=== PATIENT | female | born 1970 | race Caucasian/White ===

== ENCOUNTER 2016-12-30 20:10 | Observation (INO) | payer OTHER ==
[2016-12-30 20:00] VITALS: BP 141/85; PULSE 77; RESP 20; TEMP 97.7; O2SAT 96
[~2016-12-30 20:10] MED LIST: BUTA1CAP PO; NITR100C4 PO; PERC5TAB12 PO
[2016-12-30] MEDS ORDERED: NALOXONE HCL 0.4 MG/ML AMP IV PRN (20:30)
[2016-12-30] MEDS ORDERED: SODIUM CHLORIDE 0.9% FLUSH 10 ML FLUSH IV FLUSH PRN (20:30)
[2016-12-30] MEDS: ONDANSETRON HCL 4 MG/2 ML VIAL IVP PRN (21:19)
[2016-12-30] MEDS: SODIUM CHLOR 0.9% 1000 ML INJ 1,000 ML IV SCH (21:22)
[2016-12-30] MEDS: CIPROFLOXACIN 400 MG PREMIX 200 ML IV SCH (21:23)
[2016-12-30] MEDS: SODIUM CHLORIDE 0.9% FLUSH 10 ML FLUSH IV FLUSH SCH (21:23)
--- NOTE | 2016-12-30 22:59 | HHI.HP ---
[facility] Service [facility] Primary Care Physician Rasheed Covington Admission Diagnosis Diagnoses: Chief Complaint: HUI, Left flank pain and nausea Travel History International Travel<30 Days: No Contact w/Intl Traveler <30 Da: No Traveled to Known Affected Are: No History of Present Illness Written by NATHALY Seymour acting as scribe for [Jamilah] on 12/30/16 at 22: 50. 46 y/o with a history of DM ( diet controlled), HTN (not currently on medications) recently diagnosed and never started on medication, and kidney stones presented to the ED with complaints of HUI, intermittent for the last 1 week, and nausea and left flank pain for the last 2 days. She has was found to have a left kidney stone in October that was being watched by her urologist for it to pass. Denies any fevers or chills. She complains of pain and pressure after urination, denies any burning sensation. Denies any chest pain, sob, or vomiting. Urologist is Dr. Guzman PCP is Dr. Covington Review of Systems Constitutional: DENIES: Fever, Chills Respiratory: DENIES: Cough, Shortness of breath Cardiovascular: DENIES: Chest pain, Lower Extremity Edema Gastrointestinal: COMPLAINS OF: Abdominal pain, Nausea, DENIES: Diarrhea, Vomiting Genitourinary: COMPLAINS OF: Dysuria, DENIES: Hematuria Musculoskeletal: COMPLAINS OF: Back pain (left flank), DENIES: Neck pain Integumentary: DENIES: Rash Hematologic/lymphatic: DENIES: Lymphadenopathy Immunologic/allergic: DENIES: Urticaria Neurologic: COMPLAINS OF: Headache Past Family Social History Past Medical History HTN- not on medications DM- diet controlled Past Surgical History Hysterectomy Tubal Lithotripsy Hernia repair Cholecystectomy Reported Medications Reported Meds & Active Scripts Active Nitrofurantoin Monohydrate Macrocrystals (Nitrofurantoin Monoh/Nitrofur Macro) 100 Mg Cap 100 Mg PO BID Allergies: Coded Allergies: Morphine (Verified Allergy, Severe, HIVES, 12/30/16) Seroquel (Verified Allergy, Severe, STOMACH PAIN, 12/30/16) Toradol (Verified Allergy, Severe, HIVES, 12/30/16) Active Ordered Medications Current Medications Medications (Trade) Dose Ordered Sig/Jayy Route Start Time Stop Time Status Last Admin (NS 1000 ml Inj) 1,000 ml @ 100 mls/hr Q10H IV 12/30/16 20:26 12/30/16 21:22 (NS Flush) 2 ml UNSCH PRN IV FLUSH 12/30/16 20:30 (NS Flush) 2 ml BID IV FLUSH 12/30/16 21:00 12/30/16 21:23 (Zofran Inj) 4 mg Q6H PRN IVP 12/30/16 20:30 12/30/16 21:19 Naloxone HCl 0.4 mg 0.4 mg UNSCH PRN IV 12/30/16 20:30 (Cipro 400 Mg Premix) 200 ml @ 200 mls/hr Q12HR IV 12/30/16 21:00 12/30/16 21:23 Family History Mom: RA Dad: Alzheimer's Social History Tobacco use: Quit 6 years ago Alcohol use: Denies Illcit drug use: Denies Physical Exam Vital Signs Vital Signs Date Time Temp Pulse Resp B/P Pulse Ox O2 Delivery O2 Flow Rate FiO2 12/30/16 20:00 97.7 77 20 141/85 96 Physical Exam GENERAL: This is a well-nourished, well-developed patient,complaining of pain. SKIN: No rashes, ecchymoses or lesions. Cool and dry. HEAD: Atraumatic. Normocephalic. EYES: Pupils equal round and reactive. ENT: Nose without bleeding, purulent drainage or septal hematoma. NECK: Trachea midline. No JVD or lymphadenopathy. CARDIOVASCULAR: Regular rate and rhythm without murmurs, gallops, or rubs. RESPIRATORY: Clear to auscultation. Breath sounds equal bilaterally. No wheezes , rales, or rhonchi. GASTROINTESTINAL: Abdomen soft, non-tender, nondistended. Left flank pain. MUSCULOSKELETAL: Extremities without clubbing, cyanosis, or edema. No joint tenderness, effusion, or edema noted. No calf tenderness. NEUROLOGICAL: Awake and alert. Motor and sensory grossly within normal limits. Normal speech. Imaging Assessment and Plan Problem List: (1) Pyelonephritis ICD Code: N12 Status: Acute (2) Cephalalgia ICD Code: R51 Status: Acute (3) HTN (hypertension) ICD Code: I10 Status: Acute Assessment and Plan 46 y/o with a history of DM ( diet controlled), HTN (not currently on medications) recently diagnosed and never started on medication, and kidney stones presented to the ED with complaints of HUI, intermittent for the last 1 week, and nausea and left flank pain for the last 2 days. She has was found to have a left kidney stone in October that was being watched by her urologist for it to pass. Pyelonephritis, Left flank pain, no fevers or leukocytosis UA Abnormal, CT abdomen/pelvis reviewed unchanged from prior study -Urine culture pending -Cipro IV Q12hrs -Pain medication with IV Dilaudid -IVF for hydration Cephalalgia, questionable punctate hemorrhage, patient with intermittent headaches for 1 week, suspected BP related Head CT reviewed shows questionable punctate hemorrhage, may be artifact, recommended repeat in 12 hours -Repeat Head CT in AM -Neuro checks HTN, diagnosed 1 month ago, never started on medications, suspected increased due to pain -Vasotec IV PRN -Patient may need to be started on oral when pain is controlled -Monitor vitals DVT prophylaxis: SCDs Discussed Condition With Patient, RN and ED physician Physician Certification 2 Midnight Certification Type: Continued Stay Order for Inpatient Services The services are ordered in accordance with Medicare regulations or non- Medicare payer requirements, as applicable. In the case of services not specified as inpatient-only, they are appropriately provided as inpatient services in accordance with the 2-midnight benchmark. Estimated LOS (days): 0 days is the estimated time the patient will need to remain in the hospital, assuming treatment plan goals are met and no additional complications. Post-Hospital Plan: Home Notes: Patient is Observation Problem Qualifiers (1) Cephalalgia: Joslyn Smith Dec 30, 2016 22:59
[2016-12-30] MEDS ORDERED: ACETAMINOPHEN/HYDROcodone 325 MG/5 MG TAB PO PRN (23:15)
[2016-12-30] MEDS ORDERED: ENALAPRILAT 1.25 MG/ML VIAL IV PUSH PRN (23:30)
[2016-12-31] VITALS (7 sets, daily range): BP systolic 109–141; BP diastolic 65–85; PULSE 60–78; RESP 16–20; TEMP 97.2–98.8; O2SAT 95–98
[2016-12-31] MEDS: SODIUM CHLOR 0.9% 1000 ML INJ 1,000 ML IV SCH (05:40)
[2016-12-31 06:05] LABS: AUTOMATED NEUTROPHIL # 4.1 TH/MM3 (1.8-7.7); BASOPHIL % 0.5 % (0.0-2.0); EOSINOPHIL # 0.1 TH/MM3 (0-0.4); EOSINOPHIL % 1.7 % (0.0-4.0); HEMATOCRIT 39.2 % (35.0-46.0); HEMO FLAGS DIFF FINAL; LYMPH % 23.5 % (9.0-44.0); LYMPHOCYTE # 1.5 TH/MM3 (1.0-4.8); MEAN CORPUSCULAR HEMOGLOBIN 29.3 PG (27.0-34.0); MONO % 10.4 % (0.0-8.0); NEUT % 63.9 % (16.0-70.0); PLATELET COUNT 155 TH/MM3 (150-450); RED CELL DISTRIBUTION WIDTH 13.7 % (11.6-17.2); WHITE BLOOD COUNT 6.4 TH/MM3 (4.0-11.0)
[2016-12-31 06:24] LABS: BICARBONATE 25.7 MEQ/L (21.0-32.0); POTASSIUM 3.6 MEQ/L (3.5-5.1)
[2016-12-31] MEDS: ONDANSETRON HCL 4 MG/2 ML VIAL IVP PRN ×2 (07:30→14:43)
[2016-12-31] MEDS: HYDROmorphone HCL PF 1 MG/ML VIAL IV PUSH PRN ×3 (07:31→16:07)
--- NOTE | 2016-12-31 09:22 | RADRPT ---
EXAM DATE/TIME: 12/31/2016 07:57 [facility] COMPARISON: CT BRAIN W/O CONTRAST, December 30, 2016, 16:41. INDICATIONS : Follow up for punctate hemorrhage. RADIATION DOSE: 56.35 CTDIvol (mGy) MEDICAL HISTORY : Cardiovascular disease. Hypertension. Diabetes mellitus type 2. SURGICAL HISTORY : None. ENCOUNTER: Subsequent ACUITY: 1 day PAIN SCALE: 2/10 LOCATION: cranial TECHNIQUE: Multiple contiguous axial images were obtained of the head. Using automated exposure control and adj ustment of the mA and/or kV according to patient size, radiation dose was kept as low as reasonably a chievable to obtain optimal diagnostic quality images. DICOM format image data is available electro nically for review and comparison. FINDINGS: Today's exam is compared to the prior study of 12/30/2016. A small punctate hemorrhage is noted high al jaron the lesser vertex. On today's examination the small punctate hemorrhages stable. It is partially hidden by the dural calcifications. However, there is now a small amount of surrounding edema which i s a new finding compared to the prior study. Otherwise, the rest of examination remains stable. The v entricles are normal in size and midline in position. There is no mass effect or midline shift. No ne w areas of hemorrhage are demonstrated. CONCLUSION: 1. Stable tiny punctate hemorrhage high along the left cerebral vertex now surrounded by a small amou nt of edema. 2. Otherwise, the rest of the brain remains stable and unremarkable. No other new findings are demons trated. Gato Talley MD on December 31, 2016 at 9:15 Board Certified Radiologist. This report was verified electronically.
[2016-12-31] MEDS: SODIUM CHLORIDE 0.9% FLUSH 10 ML FLUSH IV FLUSH SCH (10:16)
[2016-12-31] MEDS: CIPROFLOXACIN 400 MG PREMIX 200 ML IV SCH (10:17)
--- NOTE | 2016-12-31 10:50 | HHI.PR ---
Subjective Remarks Follow-up cephalgia/tiny punctate hemorrhage 12/31/16-patient seen and examined, reports some improvement of headaches. Follow-up head CT stable with tiny punctate hemorrhage. Patient was up and ambulating in the hallway with PT and denies any dizziness Objective Vitals Vital Signs Date Time Temp Pulse Resp B/P Pulse Ox O2 Delivery O2 Flow Rate FiO2 12/31/16 08:00 97.2 60 17 133/67 95 12/31/16 04:00 97.5 64 20 109/65 98 12/31/16 00:41 78 12/31/16 00:00 97.6 63 20 124/67 95 12/30/16 20:00 97.7 77 20 141/85 96 I/O 12/30/16 12/30/16 12/30/16 12/31/16 12/31/16 12/31/16 07:00 15:00 23:00 07:00 15:00 23:00 Intake Total 240 ml 1000 ml Balance 240 ml 1000 ml Intake Oral 240 ml IV Total 1000 ml # Voids 1 1 Result Diagram: 12/31/16 0550 12/31/16 0550 Imaging Last Impressions Head CT 12/31/16 0600 Signed Impressions: Service Date/Time: December 07:57 - CONCLUSION: 1. Stable tiny punctate hemorrhage high along the left cerebral vertex now surrounded by a small amount of edema. 2. Otherwise, the rest of the brain remains stable and unremarkable. No other new findings are demonstrated. Gato Talley MD Objective Remarks GENERAL: NAD SKIN: Warm and dry. HEAD: Normocephalic. EYES: No scleral icterus. No injection or drainage. NECK: Supple, trachea midline. No JVD or lymphadenopathy. CARDIOVASCULAR: Regular rate and rhythm without murmurs, gallops, or rubs. RESPIRATORY: Breath sounds equal bilaterally. No accessory muscle use. GASTROINTESTINAL: Abdomen soft, non-tender, nondistended. MUSCULOSKELETAL: No cyanosis, or edema. BACK: Nontender without obvious deformity. No CVA tenderness. A/P Problem List: (1) Pyelonephritis ICD Code: N12 Status: Acute (2) Cephalalgia ICD Code: R51 Status: Acute (3) HTN (hypertension) ICD Code: I10 Status: Acute (4) Punctate hemorrhage of left frontal lobe ICD Code: I61.1 Status: Acute Assessment and Plan 46-year-old female with Pyelonephritis, Left flank pain, no fevers or leukocytosis UA Abnormal, CT abdomen/pelvis reviewed unchanged from prior study -Urine culture pending -Cipro IV Q12hrs however will switch to by mouth Macrobid -Pain medication with IV Dilaudid -IVF for hydration Cephalalgia Tiny punctate punctate hemorrhage -Repeat Head CT this a.m. stable with again tiny punctate Hemorrhage in the left cerebral vertex -Neuro checks HTN, diagnosed 1 month ago, never started on medications, suspected increased due to pain -Vasotec IV PRN -Currently normotensive, patient will follow outpatient with PCP DVT prophylaxis: SCDs Discharge Planning Discharge patient to home Condition on discharge: Improved Regular Diet as tolerated [place] activity Rx written:none Follow-up with primary care physician in one week Problem Qualifiers (1) Cephalalgia: Ziggy Sumner MD Dec 31, 2016 10:50
[2016-12-31] MEDS ORDERED: diphenhydrAMINE HCL 50 MG/ML VIAL IM ONE (11:30)
[2016-12-31] MEDS ORDERED: ACETAMINOPHEN 325 MG TAB PO ONE (16:00)
== END 2016-12-31 18:15 | disposition home or self-care (01) ==
LOC: NEDDLT 20:10 → N05B 20:20 → OBSVTOIN 20:20 → INTOOBSV 20:20
PROVIDERS: ADMIT Hospitalist; ATTEND Hospitalist
DX: R51 Headache (principal); I61.1 Nontraumatic intracerebral hemorrhage in hemisphere, cortical; N12 Tubulo-interstitial nephritis, not specified as acute or chronic; R10.9 Unspecified abdominal pain; R11.0 Nausea; E11.9 Type 2 diabetes mellitus without complications; I10 Essential (primary) hypertension; Z87.891 Personal history of nicotine dependence
CPT/HCPCS: 70450; 74176; 76937; 80048; 80053; 81001; 84702; 85025; 87077; 87086; 87186; 96361; 96374; 96375; 97161; 99285; G0378; G8987; G8988; J0744; J1170; J1200; J2060; J2405; J2543; J2765; J7030; 99281

== ENCOUNTER → 2017-02-17 | Day surgery (SDC) | payer OTHER ==
--- NOTE | 2017-02-11 08:35 | MH ---
cc: JACQUES RAVI MD DATE OF ADMISSION: 02/17/2017 : 1970 Scheduled for admission on February 17 for midurethral sling and anterior posterior repair. HISTORY OF PRESENT ILLNESS The patient is a 46-year-old female, 5, para 4 status post hysterectomy for fibroids, has issues with pelvic organ prolapse and stress incontinence. She typically has incontinence with lifting and any increased activity. She notes this has gotten worse after the of her 11 pound child. Has a 30 pack-year history of smoking but quit smoking about 5 years ago. Has had a urodynamic study that shows low sensory volumes, low total capacity at 200 ccs and did demonstrate leaking at 93 ccs. There is no sign of detrusor instability or elevated postvoid residual. PAST MEDICAL HISTORY Hypertension. PAST SURGICAL HISTORY 1. SOPHY-BSO. 2. Hernia repair. 3. Tubal ligation. 4. Total abdominal hysterectomy. MEDICATIONS 1. Lisinopril. 2. Percocet for back pain. FAMILY HISTORY Noncontributory. GYNECOLOGIC HISTORY No STDs or abnormal Pap smears. OBSTETRICAL HISTORY Four vaginal deliveries, largest baby 11 pounds. SOCIAL HISTORY Prior smoking, quit 5 years ago. No alcohol or drugs. ALLERGIES TORADOL AND MORPHINE. TORADOL CAUSES RASH AND HIVES. REVIEW OF SYSTEMS As above. No chest pain, orthopnea, PND. No nausea, vomiting, fever or chills. No vaginal bleeding or discharge. Pelvic pressure and stress urinary incontinence as noted above. PHYSICAL EXAMINATION VITAL SIGNS: On exam she is afebrile. Vital signs are stable. Blood pressure is 120/70, height is 5 feet, 2 inches, weight 173, BMI is 32. GENERAL: Patient is alert and oriented, no acute distress. No sign of cognitive dysfunction or depression. HEENT: Within normal limits. NECK: Supple. No JVD. CHEST: Clear. HEART: Regular rate and rhythm. ABDOMEN: Soft, nontender. No hepatosplenomegaly. No CVA tenderness. PELVIC: POP-Q score: Aa is 0, Ap is 0. Point C is -1. Genital hiatus is 8. Perineal body is 1. Levator muscles were 3/5. Sacral nerve reflexes are normal. Hypermobility of urethra noted with 30 degrees deviation from horizontal. Further exam under anesthesia. EXTREMITIES: Normal skin without rashes. NEURO: Nonfocal. No DVT signs. ASSESSMENT Patient with pelvic organ prolapse and stress incontinence. The patient has stage II pelvic organ prolapse anterior posterior and apical compartments. Will proceed with repair and suspension. We discussed risks, benefits, alternatives of planned procedure including damage to surrounding organs, bleeding, infection, failure of repair, pain with intercourse. The patient has issues with stress incontinence documented on urodynamic testing. We discussed risks, benefits, alternatives to planned procedure of midurethral sling including damage to surrounding organs, bleeding, infection, failure to achieve continence, issues with pelvic pain, discomfort, dyspareunia, mesh erosion, mesh complication are discussed. The patient has made an informed choice to proceed. At this point we anticipate outpatient procedure. Will use DVT prophylaxis with sequential compression device, antibiotic coverage Ancef 2 grams and postoperatively we will avoid Toradol with her rash and hive history but we can use tramadol postoperatively. MD KUSHAL Barnett/KRUPA /10:14 AM /8:32 AM
[~2017-02-17] VITALS: Ht 157.5 cm; Wt 80.9 kg
[~2017-02-17] MED LIST changes: +*HYDROmorphone PF 1 MG VIAL PERIprocedural Use ONLY ONE; +ACETAMINOPHEN 1000 MG/100 ML 100 ML IV ONE; +APREPITANT 40 MG CAP ONE; -BUTA1CAP PO; +CEPH-460 PO; +CHLORHEXIDINE GLUCONATE 2 % 1 PACK (2 CLOTHS) TOPICAL PRN; +DO NOT ADM ANY ANTICOAGULANT DRUGS PRN; +FAMOTIDINE 20 MG/2 ML VIAL ONE; +HYDR-3580 PO; +INSULIN HUMAN REGULAR 1,000 UNITS/10 ML VIAL SQ PRN; +LACTATED RINGER'S 1000 ML INJ 1,000 ML IV ONE; +LACTATED RINGER'S 1000 ML IV PRN; +LIDOCAINE 0.5%/EPINEPHrine 1:200,000 SOLN 50 ML VIAL ONE; +MEPERIDINE HCL 50 MG/ML VIAL IM PRN; +METHYLENE BLUE 10 MG/ML VIAL OTHER ONE; +METOPROLOL TARTRATE 25 MG TAB PO PRN; +MIDAZOLAM HCL 2 MG/2 ML VIAL ONE; +NAPR500 PO; +ONDANSETRON HCL 4 MG/2 ML VIAL IV PUSH ONE; +ONDANSETRON HCL 4 MG/2 ML VIAL IV PUSH PRN; -PERC5TAB12 PO; +POVIDONE IODINE 5% (ANTISEPSIS KIT) 4 APPLICATIONS EACH NARE PRN; +PROPOFOL 200 MG/20 ML AMP IV ONE; +SODIUM CHLORID 0.9% 500 ML IV PRN; +ZOFR4TAB3 SL; +ZOFR8TAB PO; +ceFAZolin 2 GM PREMIX 50 ML IV SCH; +fentaNYL CITRATE 250 MCG/5 ML AMP ONE; +traMADol HCL 50 MG TAB PO PRN
--- NOTE | 2017-02-17 12:00 | MP ---
cc: JACQUES RAVI MD DATE OF SURGERY 02/17/2017 PREOPERATIVE DIAGNOSES 1. Stress urinary continence. 2. Anterior cystocele grade 2. 3. Rectocele grade 2. 4. Loss of perineal body. POSTOPERATIVE DIAGNOSES 1. Stress urinary continence. 2. Anterior cystocele grade 2. 3. Rectocele grade 2. 4. Loss of perineal body. 5. Absence of external anal sphincter from 10 o'clock to 2 o'clock. PROCEDURE 1. Anterior and posterior repair. 2. Extraperitoneal vaginal apical suspension. 3. Transobturator midurethral sling, polypropylene Desara manufactured by [employer]. 4. External sphincteroplasty end-to-end technique. 5. Diagnostic cystoscopy. SURGEON Dr. Ravi ANESTHESIA General endotracheal. BLOOD LOSS 75 cc. URINE OUTPUT 300 cc. FLUIDS 1000 cc crystalloid LICENSED APPRAISER Winner staff x 2. FINDINGS External genitalia normal. POP-Q score: Aa is 0, Ap is +1. Point C is -2. Total vaginal length is 10. Genital hiatus is 8. Perineal body is 1. Bimanual exam unremarkable. Rectal exam unremarkable. Following repair, Aa is -3, Ap is -3. Point C is -8. Total vaginal length is 10. Genital hiatus is 6. Perineal body is 6. SPECIMENS Vaginal mucosa, trimmed but not sent. COMPLICATIONS None. DISPOSITION To Recovery stable. COUNTS Needle, instrument and sponge counts correct. DRAINS Velez catheter. ANTIBIOTIC PROPHYLAXIS Ancef 2 grams. DVT PROPHYLAXIS Sequential compression device. TIME-OUT PROCEDURE Per protocol. SUMMARY OF INDICATION AND PROCEDURE The patient with symptomatic stress urinary incontinence, documented leak at less than 50% capacity. No detrusor instability. Also, symptomatic anterior and posterior compartment defect. PROCEDURE The patient was taken to the operating theatre, identified, prepped and draped in a fashion appropriate for the planned procedure. She was in dorsal lithotomy position with careful attention paid to placement of legs in the stirrups to avoid undue stress to sensitive neurovascular structures. The above findings were noted, neurovascular integrity documented. A Velez catheter was placed, methylene blue was instilled into the bladder. Obturator foramen were identified, marked infiltrated with epinephrine/lidocaine solution. The length of the urethra was identified by palpating the Velez bulb. The vaginal mucosa was infiltrated with epinephrine/lidocaine solution. Midline incision was made approximately 1 cm from the urethra; this was taken down, mobilizing the urethra. No damage to the bladder or urethra and there is no spill of methylene blue. A C-hook was placed from a lateral to medial position bilaterally and then a polypropylene sling was placed in the mid-urethra using a horizontally apposed scalpel handle as a spacer. Cystoscopy performed using a 17-Chinese bridge and a 70-degree scope, above findings noted. No damage to the urethra or bladder. Anterior repair was completed in standard fashion, the vaginal mucosa trimmed and closed with a running Vicryl suture and hemostatic matrix was used to obviate the need for packing. The posterior compartment was significantly prolapsed. We also noted that there was a lack of external sphincter between approximately 10 and 2 o'clock position consistent with childbirth injury. The vaginal cuff was incised after infiltration with epinephrine/lidocaine solution. Made the incision up to the apex, had one finger in the rectum to give us traction and countertraction to make sure that the rectum was not damaged. There was significant diminution and tearing of the rectovaginal septum and this required a combination site specific repair as well as plication but once that was done we had a good rectocele repair. Also, enterocele was encountered and taken care of in the same fashion. Vaginal support was performed extraperitoneally without using any mesh. The vaginal mucosa was trimmed. The mucosa was closed with a running Vicryl suture. Hemostatic matrix was used to obviate the need for packing. The sphincteroplasty was performed as a standard end-to-end technique after identifying the ends and freshening the ends of the external sphincter. This gave us much improved perineal body and there was no damage to the rectum with repair. Perineoplasty was performed with delayed absorbable 3-0 Vicryl suture. Following repair the patient had POP-Q score as noted above. She was reversed from anesthesia. The small incisions for the obturator tape were closed with Dermabond. MD KUSHAL Barnett/JAMES /11:23 AM /11:40 AM
[2017-02-17 13:26] VITALS: BP 119/72; PULSE 62; RESP 18; TEMP 97.5; O2SAT 95
== END | disposition home or self-care (01) ==
LOC: HSDC 07:34
PROVIDERS: ATTEND Obstetrics & Gynecology Gynecology
DX: N39.3 Stress incontinence (female) (male) (principal); N99.3 Prolapse of vaginal vault after hysterectomy; Z87.891 Personal history of nicotine dependence; I10 Essential (primary) hypertension; M54.9 Dorsalgia, unspecified; Z79.891 Long term (current) use of opiate analgesic; Z79.899 Other long term (current) drug therapy
CPT/HCPCS: 00942; 57260; 57288; C1771; J0131; J0690; J1170; J2175; J2250; J2405; J3010; J7120; J8501

== ENCOUNTER 2017-07-16 12:14 | Emergency (ER) | payer OTHER ==
[2017-07-16] MEDS: cloNIDine HCL 0.1 MG TAB PO (14:08)
[2017-07-16] MEDS: ONDANSETRON ODT 4 MG TAB PO (14:08)
[2017-07-16] MEDS: oxyCODONE/ACETAMINOPHEN 5 MG/325 MG TAB PO (14:08)
== END 2017-07-16 15:52 | disposition home or self-care (01) ==
LOC: NEPD 12:14
DX: R51 Headache (principal); I10 Essential (primary) hypertension; G93.89 Other specified disorders of brain; F32.9 Major depressive disorder, single episode, unspecified; E78.00 Pure hypercholesterolemia, unspecified; Z91.14 Patient's other noncompliance with medication regimen; Z86.73 Personal history of transient ischemic attack (TIA), and cerebral infarction without residual deficits
CPT/HCPCS: 70450; 99284-25

== ENCOUNTER → 2017-07-21 | Day surgery (SDC) | payer OTHER ==
[~2017-07-21] MED LIST changes: -*HYDROmorphone PF 1 MG VIAL PERIprocedural Use ONLY ONE; +ACETAMINOPHEN 1000 MG/100 ML 0 ML IV; -ACETAMINOPHEN 1000 MG/100 ML 100 ML IV ONE; -APREPITANT 40 MG CAP ONE; -CEPH-460 PO; -CHLORHEXIDINE GLUCONATE 2 % 1 PACK (2 CLOTHS) TOPICAL PRN; +DEXAMETHASONE SOD PHOS 4 MG/ML VIAL IV; +DO NOT ADM ANY ANTICOAGULANT DRUGS; -DO NOT ADM ANY ANTICOAGULANT DRUGS PRN; -FAMOTIDINE 20 MG/2 ML VIAL ONE; -HYDR-3580 PO; -INSULIN HUMAN REGULAR 1,000 UNITS/10 ML VIAL SQ PRN; -LACTATED RINGER'S 1000 ML INJ 1,000 ML IV ONE; -LACTATED RINGER'S 1000 ML IV PRN; -LIDOCAINE 0.5%/EPINEPHrine 1:200,000 SOLN 50 ML VIAL ONE; +LIDOCAINE HCL 1% PF 5 ML SYRINGE OTHER; -MEPERIDINE HCL 50 MG/ML VIAL IM PRN; -METHYLENE BLUE 10 MG/ML VIAL OTHER ONE; +METOPROLOL TARTRATE 25 MG TAB PO; -METOPROLOL TARTRATE 25 MG TAB PO PRN; +MIDAZOLAM HCL 2 MG/2 ML VIAL; -MIDAZOLAM HCL 2 MG/2 ML VIAL ONE; -NAPR500 PO; -NITR100C4 PO; +ONDANSETRON HCL 4 MG/2 ML VIAL IV PUSH; -ONDANSETRON HCL 4 MG/2 ML VIAL IV PUSH ONE; -ONDANSETRON HCL 4 MG/2 ML VIAL IV PUSH PRN; +POVIDONE IODINE 5% (ANTISEPSIS KIT) 4 APPLICATIONS EACH NARE; -POVIDONE IODINE 5% (ANTISEPSIS KIT) 4 APPLICATIONS EACH NARE PRN; +PROPOFOL 200 MG/20 ML AMP IV; -PROPOFOL 200 MG/20 ML AMP IV ONE; +SODIUM CHLORID 0.9% 500 ML IV; -SODIUM CHLORID 0.9% 500 ML IV PRN; -ZOFR4TAB3 SL; -ZOFR8TAB PO; -ceFAZolin 2 GM PREMIX 50 ML IV SCH; +ePHEDrine/NS 25 MG/5 ML SYRINGE IV; -fentaNYL CITRATE 250 MCG/5 ML AMP ONE; +oxyCODONE/ACETAMINOPHEN 5 MG/325 MG TAB PO; -traMADol HCL 50 MG TAB PO PRN
[2017-07-21] MEDS: CHLORHEXIDINE GLUCONATE 2 % 1 PACK (2 CLOTHS) TOPICAL (07:00)
[2017-07-21] MEDS: LACTATED RINGER'S 1000 ML IV (08:00)
[2017-07-21 08:07] LABS: AUTOMATED NEUTROPHIL # 4.2 TH/MM3 (1.8-7.7); BASOPHIL % 0.5 % (0.0-2.0); EOSINOPHIL # 0.1 TH/MM3 (0-0.4); EOSINOPHIL % 1.3 % (0.0-4.0); HEMATOCRIT 38.2 % (35.0-46.0); HEMO FLAGS DIFF FINAL; HEMOGLOBIN 12.8 GM/DL (11.6-15.3); LYMPHOCYTE # 1.3 TH/MM3 (1.0-4.8); MEAN CELL VOLUME 87.2 FL (80.0-100.0); MEAN CORPUSCULAR HEMOGLOBIN 29.2 PG (27.0-34.0); MEAN CORPUSCULAR HGB CONC 33.5 % (32.0-36.0); MEAN PLATELET VOLUME 8.3 FL (7.0-11.0); MONO % 9.2 % (0.0-8.0); MONOCYTE # 0.6 TH/MM3 (0-0.9); PLATELET COUNT 169 TH/MM3 (150-450); RED BLOOD COUNT 4.39 MIL/MM3 (4.00-5.30); RED CELL DISTRIBUTION WIDTH 13.3 % (11.6-17.2); WHITE BLOOD COUNT 6.1 TH/MM3 (4.0-11.0)
[2017-07-21] MEDS: HYDROmorphone HCL PF 2 MG/ML VIAL (09:48)
[2017-07-21] MEDS: *diphenhydrAMINE HCL 50 MG/ML VIAL PERIprocedural Use ONLY (09:58)
[2017-07-21] MEDS: ONDANSETRON HCL 4 MG/2 ML VIAL IV PUSH (10:00)
== END | disposition home or self-care (01) ==
LOC: HSDC 06:33
DX: N20.0 Calculus of kidney (principal); I10 Essential (primary) hypertension; Z90.49 Acquired absence of other specified parts of digestive tract
CPT/HCPCS: 00873; 50590; 74018; 85025